=== PATIENT | female | born 1980 | race Caucasian/White ===

== ENCOUNTER → 2016-10-28 | Outpatient (CLI) | payer BC, OTHER ==
[~2016-10-28] MED LIST: /QUET10TA; CLON0.5T PO; KLON1TAB; LEVO200T4 PO; LEVOXYL25 MCG PO; MIRT30TA2 PO; PROZ40CA
--- NOTE | 2016-10-28 14:30 | REP ---
RIGHT KNEE FIVE VIEWS: HISTORY: Fall. There is no acute fracture or dislocation. There is very minimal lateral subluxation of the patella. The knee joint space is normal in appearance. IMPRESSION: There is very minimal lateral subluxation of the patella. Signed by Edmundo Do MD 10/28/2016 02:31 P
== END ==
LOC: M WUC 13:56
PROVIDERS: ATTEND Physician Assistant
DX: M25.561 Pain in right knee (principal)

== ENCOUNTER 2017-09-03 16:10 | Emergency (ER) | payer BC, OTHER ==
[2017-09-03] MEDS: NS 1,000 ML IV (16:30)
[2017-09-03] MEDS ORDERED: ONDANSETRON 4MG/2ML VIAL (J2405) As Ordered (16:40)
[2017-09-03 16:51] LABS: HEMATOCRIT 42.6 % (36.0-47.0); HEMOGLOBIN 14.7 g/dl (12.0-15.5); MEAN CORPUSCULAR HEMOGLOBIN 30.7 pg (27.0-33.0); MEAN CORPUSCULAR HGB CONC 34.5 g/dl (32.0-36.5); MEAN CORPUSCULAR VOLUME 88.9 fl (80.0-96.0); PLATELET COUNT, AUTOMATED 384 10^3/uL (150-450); RED BLOOD COUNT 4.79 10^6/uL (4.00-5.40); RED CELL DISTRIBUTION WIDTH 12.5 % (11.5-14.5)
[2017-09-03 16:55] LABS: ADD MANUAL DIFFER YES; DIFF SLIDE NUMBER 123; POSITIVE DIFF POS FLAG; WHITE BLOOD COUNT 15.3 10^3/uL (4.0-10.0)
[2017-09-03] MEDS: ONDANSETRON 4MG/2ML VIAL (J2405) IV (16:56)
[2017-09-03] MEDS: MORPHINE 4 MG/ML 1ML VIAL/SYRINGE (J2270) IV ×2 (16:56→17:32)
[2017-09-03 17:07] LABS: CONTROL LINE HCG INT CTR LINE PRESENT; HCG, SERUM QUALITATIVE NEGATIVE (NEGATIVE)
[2017-09-03 17:16] LABS: ALBUMIN 3.9 GM/DL (3.2-5.2); ALKALINE PHOSPHATASE 77 U/L (45-117); ALT/SGPT 14 U/L (12-78); ANION GAP 11 MEQ/L (8-16); AST/SGOT 29 U/L (7-37); BILIRUBIN,DIRECT < 0.1 MG/DL (0.0-0.2); BILIRUBIN,TOTAL 0.3 MG/DL (0.2-1.0); BLOOD UREA NITROGEN 9 MG/DL (7-18); CALCIUM LEVEL 8.7 MG/DL (8.5-10.1); CARBON DIOXIDE LEVEL 23 MEQ/L (21-32); CHLORIDE LEVEL 104 MEQ/L (98-107); CREATININE FOR GFR 0.89 MG/DL (0.55-1.30); GLOMERULAR FILTRATION RATE > 60.0 (>60); GLUCOSE, FASTING 153 MG/DL (70-100); LIPASE 161 U/L (73-393); SODIUM LEVEL 138 MEQ/L (136-145); TOTAL PROTEIN 7.8 GM/DL (6.4-8.2)
[2017-09-03 17:35] LABS: ATYPICAL LYMPH 24 % (0-5); EOSINOPHILS 5 % (0-5); LYMPHOCYTES 15 % (16-52); MONOCYTES 1 % (0-8); NEUTROPHILS 55 % (35-75)
[2017-09-03 17:36] LABS: OVALOCYTES 1+; PLATELET ESTIMATE NORMAL (NORMAL); POIKILOCYTOSIS 1+; TOXIC VACUOLATION 1+
[2017-09-03 18:03] LABS: KETONE, URINE AUTO RFX TRACE mg/dL (NEGATIVE); LEUKOCYTE ESTERASE UR AUTO RFX NEGATIVE (NEGATIVE); NITRITE, URINE AUTO RFX NEGATIVE (NEGATIVE); RBC, URINE AUTO RFX TNTC /HPF (0-3); SPECIFIC GRAVITY UR AUTO RFX 1.018 (1.002-1.035); SQUAM EPITHELIAL CELL UR AURFX 4 /HPF (0-6); WBC, URINE AUTO RFX 1 /HPF (0-3)
== END 2017-09-03 18:54 | disposition home or self-care (01) ==
LOC: M ED 16:10
DX: N20.0 Calculus of kidney (principal); Z87.442 Personal history of urinary calculi; Z85.850 Personal history of malignant neoplasm of thyroid; Z96.0 Presence of urogenital implants; Z88.1 Allergy status to other antibiotic agents; Z88.8 Allergy status to other drugs, medicaments and biological substances; Z88.4 Allergy status to anesthetic agent; Z79.899 Other long term (current) drug therapy
CPT/HCPCS: J2270

== ENCOUNTER → 2017-09-06 | Outpatient (REF) | payer OTHER | LOC: M SFHCCLAY 14:24 | DX: N20.1 Calculus of ureter (principal) | CPT/HCPCS: 87086 ==

== ENCOUNTER 2017-09-23 15:56 | Emergency (ER) | payer BC, OTHER ==
[2017-09-23] MEDS: ONDANSETRON 4MG/2ML VIAL (J2405) IV (14:56)
[2017-09-23] MEDS: NS 1,000 ML IV (14:56)
[2017-09-23] MEDS: MORPHINE 4 MG/ML 1ML VIAL/SYRINGE (J2270) IV ×2 (14:57→16:35)
[2017-09-23 15:13] LABS: BASO # 0.1 10^3/uL (0.0-0.2); BASO % 0.5 % (0.0-1.0); EOS # 0.2 10^3/uL (0.0-0.50); EOS % 1.5 % (0.0-3.0); HEMATOCRIT 44.2 % (36.0-47.0); HEMOGLOBIN 14.9 g/dl (12.0-15.5); IMMATURE GRANULOCYTE % 0.3 % (0-3.0); LYMPH # 3.6 10^3/uL (1.5-4.5); LYMPH % 33.5 % (24.0-44.0); MEAN CORPUSCULAR HEMOGLOBIN 30.5 pg (27.0-33.0); MEAN CORPUSCULAR HGB CONC 33.7 g/dl (32.0-36.5); MEAN CORPUSCULAR VOLUME 90.4 fl (80.0-96.0); MONO # 0.8 10^3/uL (0.0-0.8); MONO % 7.6 % (0.0-5.0); NEUTROPHILS # 6.1 10^3/uL (1.8-7.7); NEUTROPHILS % 56.6 % (36.0-66.0); PLATELET COUNT, AUTOMATED 367 10^3/uL (150-450); RED BLOOD COUNT 4.89 10^6/uL (4.00-5.40); RED CELL DISTRIBUTION WIDTH 12.6 % (11.5-14.5); WHITE BLOOD COUNT 10.7 10^3/uL (4.0-10.0)
[2017-09-23 15:27] LABS: ALBUMIN 4.1 GM/DL (3.2-5.2); ALBUMIN/GLOBULIN RATIO 1.14 (1.00-1.93); ALKALINE PHOSPHATASE 72 U/L (45-117); ALT/SGPT 19 U/L (12-78); AMYLASE 25 U/L (25-115); ANION GAP 10 MEQ/L (8-16); AST/SGOT 14 U/L (7-37); BILIRUBIN,DIRECT < 0.1 MG/DL (0.0-0.2); BILIRUBIN,TOTAL 0.2 MG/DL (0.2-1.0); BLOOD UREA NITROGEN 11 MG/DL (7-18); C REACTIVE PROTEIN QUANTITATIV 1.14 MG/DL (0.00-0.30); CALCIUM LEVEL 8.9 MG/DL (8.5-10.1); CARBON DIOXIDE LEVEL 29 MEQ/L (21-32); CHLORIDE LEVEL 104 MEQ/L (98-107); CREATININE FOR GFR 0.78 MG/DL (0.55-1.30); GAMMA GLUTAMYLTRANSPEPTIDASE 66 U/L (5-55); GLOMERULAR FILTRATION RATE > 60.0 (>60); GLUCOSE, FASTING 135 MG/DL (70-100); LIPASE 214 U/L (73-393); POTASSIUM SERUM 3.9 MEQ/L (3.5-5.1); SODIUM LEVEL 143 MEQ/L (136-145); TOTAL PROTEIN 7.7 GM/DL (6.4-8.2)
[2017-09-23] MEDS: PANTOPRAZOLE 40MG INJ (PROTONIX) (C9113) IV (18:17)
[2017-09-23] MEDS: GI COCKTAIL 50ML BTL(HYOSCYAMINE/MAALOX/LIDOCAINE VISCOUS)(1:3:1) PO (18:17)
[2017-09-23 19:47] LABS: KETONE, URINE AUTO RFX TRACE mg/dL (NEGATIVE); LEUKOCYTE ESTERASE UR AUTO RFX NEGATIVE (NEGATIVE); MUCUS, URINE RFX SMALL (NEGATIVE); NITRITE, URINE AUTO RFX NEGATIVE (NEGATIVE); RBC, URINE AUTO RFX 134 /HPF (0-3); SPECIFIC GRAVITY UR AUTO RFX 1.019 (1.002-1.035); SQUAM EPITHELIAL CELL UR AURFX 7 /HPF (0-6); WBC, URINE AUTO RFX 3 /HPF (0-3)
[2017-09-23] MEDS: NORCO 5/325MG TABLET (BULK FOR ED) PO (20:47)
[2017-09-23] MEDS: ONDANSETRON 4 MG ORAL DISINTEGRATING TAB (Q0162 PER 1MG) PO (20:47)
== END 2017-09-23 20:53 | disposition home or self-care (01) ==
LOC: M ED 15:56
DX: N23 Unspecified renal colic (principal); Z85.850 Personal history of malignant neoplasm of thyroid; Z96.0 Presence of urogenital implants; Z90.89 Acquired absence of other organs; Z87.891 Personal history of nicotine dependence; Z79.899 Other long term (current) drug therapy; Z88.8 Allergy status to other drugs, medicaments and biological substances; Z88.1 Allergy status to other antibiotic agents
CPT/HCPCS: C9113

== ENCOUNTER → 2017-10-03 | Outpatient (REF) | payer BC, OTHER ==
[2017-10-03 11:33] LABS: AMORPHOUS SEDIMENT SMALL (NEGATIVE); APPEARANCE, URINE CLOUDY (CLEAR); BACTERIA, URINE AUTO 1+ (NEGATIVE); BILIRUBIN, URINE AUTO NEGATIVE (NEGATIVE); BLOOD, URINE BLOOD 3+ (NEGATIVE); COLOR, URINE YELLOW (YELLOW); GLUCOSE, URINE (UA) AUTO NEGATIVE (NEGATIVE); KETONE, URINE AUTO NEGATIVE (NEGATIVE); LEUKOCYTE ESTERASE, URINE AUTO NEGATIVE (NEGATIVE); MUCUS, URINE SMALL (NEGATIVE); NITRITE, URINE AUTO NEGATIVE (NEGATIVE); PROTEIN, URINE AUTO NEGATIVE (NEGATIVE); RBC, URINE AUTO TNTC /HPF (0-3); SPECIFIC GRAVITY URINE AUTO 1.019 (1.002-1.035); SQUAMOUS EPITHELIAL CELL UR AU 8 /HPF (0-6); UROBILINOGEN, URINE AUTO 0.2 mg/dL (0.0-2.0); WBC, URINE AUTO 4 /HPF (0-3)
== END ==
LOC: M SMT 11:03
DX: R31.29 Other microscopic hematuria (principal)

== ENCOUNTER → 2017-10-11 | Outpatient (CLI) | payer BC, OTHER ==
[~2017-10-11] MED LIST changes: -/QUET10TA; -CLON0.5T PO; +ISOVUE-370 76% 100ML VIAL (Q9967) As Ordered; -KLON1TAB; -LEVO200T4 PO; -LEVOXYL25 MCG PO; -MIRT30TA2 PO; -PROZ40CA
== END ==
LOC: M RAD 08:50
DX: R31.29 Other microscopic hematuria (principal); N20.0 Calculus of kidney; N28.1 Cyst of kidney, acquired; N94.89 Other specified conditions associated with female genital organs and menstrual cycle
CPT/HCPCS: Q9967

== ENCOUNTER → 2017-10-11 | Outpatient (REF) | payer BC, OTHER ==
[2017-10-11 13:48] LABS: AMORPHOUS SEDIMENT SMALL (NEGATIVE); APPEARANCE, URINE CLOUDY (CLEAR); BACTERIA, URINE AUTO NEGATIVE (NEGATIVE); BILIRUBIN, URINE AUTO NEGATIVE (NEGATIVE); BLOOD, URINE BLOOD NEGATIVE (NEGATIVE); COLOR, URINE YELLOW (YELLOW); GLUCOSE, URINE (UA) AUTO NEGATIVE (NEGATIVE); KETONE, URINE AUTO NEGATIVE (NEGATIVE); LEUKOCYTE ESTERASE, URINE AUTO NEGATIVE (NEGATIVE); MUCUS, URINE SMALL (NEGATIVE); NITRITE, URINE AUTO NEGATIVE (NEGATIVE); PROTEIN, URINE AUTO NEGATIVE (NEGATIVE); RBC, URINE AUTO 3 /HPF (0-3); SPECIFIC GRAVITY URINE AUTO 1.025 (1.002-1.035); SQUAMOUS EPITHELIAL CELL UR AU 0 /HPF (0-6); UROBILINOGEN, URINE AUTO 0.2 mg/dL (0.0-2.0); WBC, URINE AUTO 3 /HPF (0-3)
== END ==
LOC: M SMT 13:13
DX: R31.29 Other microscopic hematuria (principal)
CPT/HCPCS: 81001

== ENCOUNTER 2017-11-01 20:16 | Emergency (ER) | payer BC, OTHER | END 2017-11-01 21:38 | disposition left against medical advice (07) | LOC: M ED 20:16 | DX: R20.2 Paresthesia of skin (principal); Z53.21 Procedure and treatment not carried out due to patient leaving prior to being seen by health care provider ==

== ENCOUNTER 2017-11-17 16:49 | Emergency (ER) | payer BC, OTHER ==
[2017-11-17] MEDS: KETOROLAC 30 MG/ML VIAL (J1885) IV (18:02)
[2017-11-17] MEDS: MORPHINE 4 MG/ML 1ML VIAL/SYRINGE (J2270) IV (18:03)
[2017-11-17] MEDS: diazePAM 5 MG TAB PO (18:03)
[2017-11-17 18:24] LABS: BASO # 0.1 10^3/uL (0.0-0.2); BASO % 0.4 % (0.0-1.0); EOS # 0.2 10^3/uL (0.0-0.50); EOS % 1.2 % (0.0-3.0); HEMATOCRIT 42.7 % (36.0-47.0); HEMOGLOBIN 14.3 g/dl (12.0-15.5); IMMATURE GRANULOCYTE % 0.4 % (0-3.0); LYMPH # 4.5 10^3/uL (1.5-4.5); LYMPH % 30.7 % (24.0-44.0); MEAN CORPUSCULAR HEMOGLOBIN 31.1 pg (27.0-33.0); MEAN CORPUSCULAR HGB CONC 33.5 g/dl (32.0-36.5); MEAN CORPUSCULAR VOLUME 92.8 fl (80.0-96.0); MONO % 6.9 % (0.0-5.0); NEUTROPHILS # 8.7 10^3/uL (1.8-7.7); NEUTROPHILS % 60.4 % (36.0-66.0); PLATELET COUNT, AUTOMATED 353 10^3/uL (150-450); RED CELL DISTRIBUTION WIDTH 13.3 % (11.5-14.5); WHITE BLOOD COUNT 14.5 10^3/uL (4.0-10.0)
[2017-11-17 18:49] LABS: CONTROL LINE HCG INT CTR LINE PRESENT; HCG, SERUM QUALITATIVE NEGATIVE (NEGATIVE)
[2017-11-17 18:53] LABS: ANION GAP 10 MEQ/L (8-16); BLOOD UREA NITROGEN 24 MG/DL (7-18); CALCIUM LEVEL 10.1 MG/DL (8.5-10.1); CARBON DIOXIDE LEVEL 26 MEQ/L (21-32); CHLORIDE LEVEL 103 MEQ/L (98-107); CREATININE FOR GFR 0.82 MG/DL (0.55-1.30); GLOMERULAR FILTRATION RATE > 60.0 (>60); GLUCOSE, FASTING 168 MG/DL (70-100); POTASSIUM SERUM 4.3 MEQ/L (3.5-5.1); SODIUM LEVEL 139 MEQ/L (136-145)
[2017-11-17] MEDS: NORCO 5/325MG TABLET (BULK FOR ED) PO (19:25)
== END 2017-11-17 19:37 | disposition home or self-care (01) ==
LOC: M ED 16:49
DX: S33.5XXA Sprain of ligaments of lumbar spine, initial encounter (principal); F41.9 Anxiety disorder, unspecified
CPT/HCPCS: J2270

== ENCOUNTER → 2018-04-22 | Outpatient (CLI) | payer BC, OTHER ==
[~2018-04-22] MED LIST changes: +/QUET10TA; +CLON0.5T8 PO; +CLON1TAB8; -ISOVUE-370 76% 100ML VIAL (Q9967) As Ordered; +JUNETAB2; +KLON1TAB; +LEVO175T2 PO; +LEVO200T4 PO; +LEVOXYL25 MCG PO; +LYRI150C; +MIRT-16 PO; +MIRT30TA3; +NORCOTAB PO; +PRED50TA PO; +PROZ40CA; +TRAM50TA2; +VALI5TAB PO; +[UNRECOGNIZED DRUG - CODE] XX
--- NOTE | 2018-04-22 17:29 | REP ---
Clinical: Trauma/fall with left ankle pain . Technique: AP, lateral, bilateral oblique views. Findings: No acute fracture or dislocation. Skeletal structures and joint spaces are intact and normal. Ankle mortise appears stable. No subcutaneous emphysema or radiodense foreign body. Impression: Normal left ankle radiograph series. Acute fracture or dislocation. Electronically Signed by Alexandr Francis MD 04/22/2018 05:21 P
--- NOTE | 2018-04-22 17:30 | REP ---
Clinical: Trauma. Technique: AP, lateral, bilateral oblique views left foot . Findings: The osseous structures and joint spaces are intact and normal. There is no evidence for acute fracture or dislocation. Surrounding soft tissues are unremarkable. No subcutaneous emphysema or radiodense foreign body. Impression: Normal left foot series. No acute fracture or dislocation. Electronically Signed by Alexandr Francis MD 04/22/2018 05:22 P
== END ==
LOC: M LRY 16:56
PROVIDERS: ATTEND Physician Assistant
DX: S99.912A Unspecified injury of left ankle, initial encounter (principal); S99.922A Unspecified injury of left foot, initial encounter

== ENCOUNTER 2018-04-23 14:41 | Emergency (ER) | payer BC, OTHER ==
[~2018-04-23] VITALS: Ht 157.5 cm; Wt 93.2 kg
[~2018-04-23 14:41] MED LIST changes: -CLON1TAB8; -TRAM50TA2; -[UNRECOGNIZED DRUG - CODE] XX
[2018-04-23] MEDS ORDERED: TRAM50TA2 (14:50)
[2018-04-23] MEDS ORDERED: CLON1TAB8 (14:50)
[2018-04-23] MEDS ORDERED: [UNRECOGNIZED DRUG - CODE] XX ×2 (17:40→17:45)
[2018-04-23 17:51] VITALS: BP 125/73
== END 2018-04-23 18:04 | disposition home or self-care (01) ==
LOC: M ED 14:41
DX: S93.602A Unspecified sprain of left foot, initial encounter (principal); W00.9XXA Unspecified fall due to ice and snow, initial encounter; Y92.9 Unspecified place or not applicable; Y93.9 Activity, unspecified; Y99.9 Unspecified external cause status; Z79.899 Other long term (current) drug therapy; Z88.8 Allergy status to other drugs, medicaments and biological substances

== ENCOUNTER → 2018-08-29 | Outpatient (REF) | payer OTHER ==
[~2018-08-29] MED LIST changes: -/QUET10TA; +CLON1TAB8; +HYDR-3715 PO; -MIRT-16 PO; +MIRT1TAB16 PO; -NORCOTAB PO; +SERO1TAB; +TRAM50TA2; +[UNRECOGNIZED DRUG - CODE] XX
[2018-08-29 16:23] LABS: C REACTIVE PROTEIN QUANTITATIV 3.24 MG/DL (0.00-0.30); RHEUMATOID FACTOR QUANT < 10.0 IU/ML (<15.0)
[2018-09-05 00:07] LABS: ANTINUCLEAR ANTIBODIES DIRECT Negative (Negative); HLA-B27 Negative (.)
== END ==
LOC: M LABDRAW1 13:57
PROVIDERS: ATTEND Physician Assistant
DX: M47.816 Spondylosis without myelopathy or radiculopathy, lumbar region (principal)

== ENCOUNTER → 2018-09-12 | Outpatient (REF) | payer OTHER ==
[2018-09-15 01:35] LABS: Lyme Disease IgG/IgM Antibodie <0.91 ISR (0.00-0.90); Lyme Disease IgM Ab Quantitati <0.80 index (0.00-0.79)
== END ==
LOC: M LABDRAW1 11:22
PROVIDERS: ATTEND Physician Assistant
DX: M47.816 Spondylosis without myelopathy or radiculopathy, lumbar region (principal)

== ENCOUNTER → 2018-09-28 | Outpatient (CLI) | payer BC, OTHER ==
--- NOTE | 2018-09-28 14:29 | REP ---
Clinical: Right ankle pain. Technique: AP, lateral, bilateral oblique views of the right ankle. Findings: No acute fracture or dislocation. Skeletal structures, joint spaces, and surrounding soft tissues appear normal. Impression: Normal right ankle radiographs. No acute fracture or dislocation. Electronically Signed by Alexandr Francis MD 09/28/2018 02:21 P
--- NOTE | 2018-09-28 14:30 | REP ---
Clinical: Pain. Technique: AP and lateral views of the right tibia / fibula. Findings: No acute fracture or dislocation. Skeletal structures, joint spaces, and surrounding soft tissues appear normal. Impression: Normal right tibia / fibula radiographs. Electronically Signed by Alexandr Francis MD 09/28/2018 02:22 P
--- NOTE | 2018-09-28 14:30 | REP ---
Clinical: Right foot pain Technique: AP, lateral, bilateral oblique views right foot . Findings: The osseous structures and joint spaces are intact and normal. There is no evidence for acute fracture or dislocation. Surrounding soft tissues are unremarkable. No subcutaneous emphysema or radiodense foreign body. Impression: Normal right foot series . No acute fracture or dislocation. Electronically Signed by Alexandr Francis MD 09/28/2018 02:21 P
== END ==
LOC: M WUC 13:25
PROVIDERS: ATTEND Physician Assistant
DX: M25.571 Pain in right ankle and joints of right foot (principal)

== ENCOUNTER → 2018-10-04 | Outpatient (REF) | payer BC, OTHER ==
[2018-10-04 14:34] LABS: BASO # 0.1 10^3/uL (0.0-0.2); BASO % 0.8 % (0.0-1.0); EOS # 0.2 10^3/uL (0.0-0.50); EOS % 2.4 % (0.0-3.0); HEMATOCRIT 45.1 % (36.0-47.0); LYMPH # 2.6 10^3/uL (1.5-4.5); LYMPH % 32.7 % (24.0-44.0); MEAN CORPUSCULAR HEMOGLOBIN 31.6 pg (27.0-33.0); MEAN CORPUSCULAR HGB CONC 33.3 g/dl (32.0-36.5); MEAN CORPUSCULAR VOLUME 95.1 fl (80.0-96.0); MONO # 0.6 10^3/uL (0.0-0.8); MONO % 7.3 % (0.0-5.0); NEUTROPHILS # 4.4 10^3/uL (1.8-7.7); NEUTROPHILS % 56.4 % (36.0-66.0); PLATELET COUNT, AUTOMATED 333 10^3/uL (150-450); RED BLOOD COUNT 4.74 10^6/uL (4.00-5.40); WHITE BLOOD COUNT 7.8 10^3/uL (4.0-10.0)
[2018-10-04 15:13] LABS: ERYTHROCYTE SEDIMENTATION RATE 11 mm/hr (0-20)
[2018-10-04 15:15] LABS: ALBUMIN 3.9 GM/DL (3.2-5.2); ALT/SGPT 19 U/L (12-78); BILIRUBIN,TOTAL 0.2 MG/DL (0.2-1.0); BLOOD UREA NITROGEN 10 MG/DL (7-18); CALCIUM LEVEL 8.7 MG/DL (8.5-10.1); CARBON DIOXIDE LEVEL 28 MEQ/L (21-32); CHLORIDE LEVEL 100 MEQ/L (98-107); CREATININE FOR GFR 0.97 MG/DL (0.55-1.30); FOLATE 13.1 NG/ML; GLOMERULAR FILTRATION RATE > 60.0 (>60); GLUCOSE, FASTING 257 MG/DL (70-100); POTASSIUM SERUM 4.1 MEQ/L (3.5-5.1); RHEUMATOID FACTOR QUANT < 10.0 IU/ML (<15.0); SODIUM LEVEL 136 MEQ/L (136-145); TOTAL PROTEIN 7.5 GM/DL (6.4-8.2); VITAMIN B12 LEVEL 370 PG/ML
[2018-10-04 15:30] LABS: HEMOGLOBIN A1c 8.6 %
[2018-10-09 10:06] LABS: DRVV SCREEN 44.5 SEC
[2018-10-09 10:07] LABS: PTT LUPUS TYPE ANTICOAG SCREEN 1.1 (0-1.2)
[2018-10-10 14:07] LABS: ANCA-ATYPICAL <1:20 titer (Neg:<1:20); ANTI DS-DNA AB <1:10 titer (.); ANTINUCLEAR ANTIBODIES DIRECT Negative (Negative); CERULOPLASMIN 30.6 mg/dL (19.0-39.0); COPPER PLASMA 133 ug/dL (72-166); CYTOPLASMIC NEUTROP AB ANCA-C <1:20 titer (Neg:<1:20); LEAD BLOOD ADULT <1 ug/dL (0-4); Lyme Disease IgG/IgM Antibodie <0.91 ISR (0.00-0.90); Lyme Disease IgM Ab Quantitati <0.80 index (0.00-0.79); MERCURY LEVEL 1.9 ug/L (0.0-14.9); PERINUCLEAR AB ANCA-P <1:20 titer (Neg:<1:20); SJOGREN'S ANTI SS-A <0.2 AI (0.0-0.9); SJOGREN'S ANTI SS-B <0.2 AI (0.0-0.9); VITAMIN B1 LEVEL WHOLE BLOOD 117.1 nmol/L (66.5-200.0); VITAMIN B6,PYRIDOXAL PHOSPHATE 2.8 ug/L (2.0-32.8); VITAMIN E(GAMMA TOCOPHEROL) 2.9 mg/L (0.7-4.9)
== END ==
LOC: M LABNEURO 10:36
PROVIDERS: ATTEND Psychiatry & Neurology Neurology
DX: G90.09 Other idiopathic peripheral autonomic neuropathy (principal)

== ENCOUNTER 2018-10-25 17:47 | Emergency (ER) | payer BC, OTHER ==
[~2018-10-25] VITALS: Ht 157.5 cm; Wt 99.5 kg
[~2018-10-25 17:47] MED LIST changes: +CLON0.5T2 PO; -CLON0.5T8 PO
[2018-10-25] MEDS ORDERED: MIRT1TAB16 PO (17:57)
[2018-10-25] MEDS ORDERED: TIZA4TAB4 (17:58)
[2018-10-25] MEDS ORDERED: MORPHINE 4 MG/ML 1ML VIAL/SYRINGE (J2270) IV ONE (19:00)
[2018-10-25] MEDS: MORPHINE 4 MG/ML 1ML VIAL/SYRINGE (J2270) IV PRN ×2 (20:12→21:43)
[2018-10-25 21:44] VITALS: BP 171/97
== END 2018-10-25 21:47 | disposition short-term general hospital (02) ==
LOC: M ED 17:47
DX: D49.89 Neoplasm of unspecified behavior of other specified sites (principal); R20.2 Paresthesia of skin; G89.29 Other chronic pain; M54.9 Dorsalgia, unspecified; Z79.899 Other long term (current) drug therapy; Z88.8 Allergy status to other drugs, medicaments and biological substances; Z87.891 Personal history of nicotine dependence
CPT/HCPCS: 96374; 96376; 99285; J2270

== ENCOUNTER 2018-12-22 17:25 | Emergency (ER) | payer BC, OTHER ==
[~2018-12-22] VITALS: Ht 160 cm; Wt 97.7 kg
[~2018-12-22 17:25] MED LIST changes: -CLON0.5T2 PO; +CLON0.5T8 PO; +TIZA4TAB4
[2018-12-22] MEDS ORDERED: ADENOSINE 6MG/2ML INJECTION (J0153) As Ordered ONE (17:36)
[2018-12-22] MEDS ORDERED: ADENOSINE 6MG/2ML INJECTION (J0153) IV STA ×2 (17:43)
[2018-12-22] MEDS ORDERED: NS 1,000 ML IV ONE (17:45)
[2018-12-22] MEDS ORDERED: LORazepam 2 MG/ML VIAL (J2060) IV STA (17:50)
[2018-12-22 17:58] LABS: HEMOGLOBIN 15.8 g/dl (12.0-15.5); MEAN CORPUSCULAR HGB CONC 33.6 g/dl (32.0-36.5); MEAN CORPUSCULAR VOLUME 92.2 fl (80.0-96.0); PLATELET COUNT, AUTOMATED 514 10^3/uL (150-450)
[2018-12-22 17:59] LABS: WHITE BLOOD COUNT 18.6 10^3/uL (4.0-10.0)
[2018-12-22 18:08] LABS: INR 1.06; PROTHROMBIN TIME 13.5 SECONDS (11.8-14.0)
[2018-12-22 18:29] LABS: ALT/SGPT 24 U/L (12-78); BILIRUBIN,DIRECT < 0.1 MG/DL (0.0-0.2); BILIRUBIN,TOTAL 0.2 MG/DL (0.2-1.0); BLOOD UREA NITROGEN 8 MG/DL (7-18); CALCIUM LEVEL 9.8 MG/DL (8.5-10.1); CARBON DIOXIDE LEVEL 22 MEQ/L (21-32); CHLORIDE LEVEL 99 MEQ/L (98-107); CK-MB VALUE MASS < 1.0 NG/ML (<3.6); CPK CREATINE PHOSPHOKINASE 104 U/L (26-192); CREATININE FOR GFR 1.08 MG/DL (0.55-1.30); FREE T4 0.62 NG/DL (0.76-1.46); GLOMERULAR FILTRATION RATE > 60.0 (>60); GLUCOSE, FASTING 297 MG/DL (70-100); LIPASE 138 U/L (73-393); MB/CK RELATIVE INDEX 0.96 (< OR =4); SODIUM LEVEL 136 MEQ/L (136-145); TOTAL PROTEIN 7.9 GM/DL (6.4-8.2); TROPONIN I < 0.02 NG/ML (< 0.10)
[2018-12-22 18:47] LABS: BASOPHILS 1 % (0-1); EOSINOPHILS 2 % (0-3); LYMPHOCYTES 42 % (16-44); MONOCYTES 5 % (0-5); NEUTROPHILS 50 % (28-66); PLATELET ESTIMATE INCREASED (NORMAL)
[2018-12-22] MEDS ORDERED: METOPROLOL 5 MG/5 ML VIAL IV STA (19:06)
[2018-12-22] MEDS ORDERED: METOPROLOL TART 25 MG TABLET PO ONE (19:15)
[2018-12-22 19:16] VITALS: BP 145/75
[2018-12-22 19:26] LABS: HCG, SERUM QUALITATIVE NEGATIVE (NEGATIVE)
--- NOTE | 2018-12-22 19:38 | ECGEPIP ---
[facility] - ED Test Date: 2018-12-22 Pat Name: SINDI PHAN Department: Room: - Gender: Female Habilitative Interventionist: OLIVIA : [id number] Requested By: Adeline Bar Order Number: [id number] Reading MD: Adeline Bar Measurements Intervals [place] Rate: 122 P: 64 [place]: 134 QRS: 50 QRSD: 87 T: 54 QT: 298 QTc: 426 Interpretive Statements SINUS TACHYCARDIA NONSPECIFIC ST & T-WAVE ABNORMALITY ABNORMAL RHYTHM ECG DELAYED R WAVE PROGRESSION NO PRIOR ECG FOR COMPARISON Electronically Signed on 12-22-2018 19:37:36 EDT by Adeline Bar
[2018-12-22 20:45] VITALS: BP 151/86
--- NOTE | 2018-12-23 09:08 | REP ---
AP PORTABLE CHEST: 12/22/2018. Clinical history: Chest pain. Findings: No prior pertinent study. There is some elevation of the right diaphragm which is present on the CT abdomen 10/11/17. No pleural effusion, acute infiltrate, atelectasis or mass. Heart is not enlarged. Aorta and airway are intact. There is no widening of the mediastinum. Visualized bones are unremarkable. No free air under the diaphragm. Impression: 1. Elevated right diaphragm, but no infiltrate, effusion, cardiomegaly or edema. 2. The heart, mediastinal and hilar contours are normal. No widening of the mediastinum. 3. Airway intact and the bones without definite acute finding. Electronically Signed by Eric Giles MD 12/23/2018 01:07 P
== END 2018-12-22 20:52 | disposition home or self-care (01) ==
LOC: M ED 17:25
DX: I47.1 Supraventricular tachycardia (principal); R73.9 Hyperglycemia, unspecified; F41.9 Anxiety disorder, unspecified; E07.9 Disorder of thyroid, unspecified; Z79.899 Other long term (current) drug therapy; Z79.890 Hormone replacement therapy; Z88.8 Allergy status to other drugs, medicaments and biological substances
CPT/HCPCS: 71045; 80048; 80076; 82550; 82553; 83690; 83735; 84439; 84443; 84484; 84703; 85025; 85610; 93005; 93041; 94760; 96361; 96374; 96375; 99285; J0153; J2060

== ENCOUNTER → 2020-02-04 | Outpatient (REF) | payer OTHER ==
[~2020-02-04] MED LIST changes: +CLON0.5T2 PO; -CLON0.5T8 PO
[2020-02-04 13:37] LABS: APPEARANCE, URINE CLEAR (CLEAR); BACTERIA, URINE AUTO NEGATIVE (NEGATIVE); BILIRUBIN, URINE AUTO NEGATIVE (NEGATIVE); BLOOD, URINE BLOOD NEGATIVE (NEGATIVE); COLOR, URINE YELLOW (YELLOW); GLUCOSE, URINE (UA) AUTO 3+ mg/dL (NEGATIVE); KETONE, URINE AUTO 1+ mg/dL (NEGATIVE); LEUKOCYTE ESTERASE, URINE AUTO NEGATIVE (NEGATIVE); NITRITE, URINE AUTO NEGATIVE (NEGATIVE); PROTEIN, URINE AUTO NEGATIVE (NEGATIVE); RBC, URINE AUTO 1 /HPF (0-3); SPECIFIC GRAVITY URINE AUTO 1.033 (1.002-1.035); SQUAMOUS EPITHELIAL CELL UR AU 5 /HPF (0-6); UROBILINOGEN, URINE AUTO 0.2 mg/dL (0.0-2.0); WBC, URINE AUTO 2 /HPF (0-3)
== END ==
LOC: M SMT 13:00
PROVIDERS: ATTEND Nurse Practitioner Women's Health
DX: N20.0 Calculus of kidney (principal); R31.0 Gross hematuria

== ENCOUNTER → 2020-03-06 | Outpatient (CLI) | payer BC | LOC: M WUC 14:40 | PROVIDERS: ATTEND Nurse Practitioner | DX: C73 Malignant neoplasm of thyroid gland (principal) ==

== ENCOUNTER → 2020-07-06 | Outpatient (CLI) | payer BC, OTHER | LOC: M WUC 15:56 | PROVIDERS: ATTEND Surgery | DX: Z53.20 Procedure and treatment not carried out because of patient's decision for unspecified reasons (principal) ==

== ENCOUNTER → 2020-07-07 | Outpatient (REF) | payer BC, OTHER | LOC: M LAB REF 19:53 | PROVIDERS: ATTEND Surgery | DX: C73 Malignant neoplasm of thyroid gland (principal) ==

== ENCOUNTER → 2020-07-10 | Outpatient (CLI) | payer BC, OTHER ==
[~2020-07-10] MED LIST changes: +ISOVUE-300 61% 50ML VIAL As Ordered ONE; +LIDOCAINE 1% MDV 20ML VIAL As Ordered ONE; +TRIAMCINOLONE ACETONIDE SUSP 40 MG/ML VIAL (J3301) As Ordered ONE
--- NOTE | 2020-07-10 16:53 | REP ---
INDICATION: OA OF RT HIP. COMPARISON: None. TECHNIQUE: The procedure was performed under the direct supervision of Dr. Charles. The benefits and risks including but not limited to pain infection and bleeding and anaphylaxis were explained to the patient and informed consent was obtained. The right femoral neck was localized using fluoroscopic guidance. The skin was prepped and draped in a sterile fashion. 1% lidocaine was used as a local anesthetic. Using fluoroscopic guidance a 22-gauge spinal needle was inserted and advanced to the femoral neck. 0.5 ml of Isovue-300 was injected to verify placement. 6 ml of a solution containing 5 ml of 1% Xylocaine and 1 ml of Kenalog 40 mg was injected. The needle was then removed. The patient tolerated the procedure well and there were no immediate complications. Less than 6 seconds of fluoro time was utilized for this procedure. FINDINGS: None IMPRESSION: Fluoro guidance for right hip injection. <Electronically signed by Ludin Rogers > 07/10/20 [id number] <Electronically signed by Edward Charles > 07/10/20 [id number]
== END ==
LOC: M RADPRO 13:11
PROVIDERS: ATTEND Physician Assistant
DX: M16.11 Unilateral primary osteoarthritis, right hip (principal)
CPT/HCPCS: 20610; 77002; J3301; Q9967

== ENCOUNTER → 2020-10-19 | Outpatient (REF) | payer OTHER ==
[~2020-10-19] MED LIST changes: -ISOVUE-300 61% 50ML VIAL As Ordered ONE; -LIDOCAINE 1% MDV 20ML VIAL As Ordered ONE; -TRIAMCINOLONE ACETONIDE SUSP 40 MG/ML VIAL (J3301) As Ordered ONE
[2020-10-19 12:01] LABS: HEMATOCRIT 48.6 % (36.0-47.0); MEAN CORPUSCULAR HEMOGLOBIN 30.3 pg (27.0-33.0); MEAN CORPUSCULAR HGB CONC 32.9 g/dl (32.0-36.5); PLATELET COUNT, AUTOMATED 393 10^3/uL (150-450); RED BLOOD COUNT 5.28 10^6/uL (4.00-5.40); WHITE BLOOD COUNT 10.4 10^3/uL (4.0-10.0)
[2020-10-19 12:59] LABS: ALBUMIN 3.8 GM/DL (3.2-5.2); ALT/SGPT 55 U/L (12-78); BILIRUBIN,TOTAL 0.3 MG/DL (0.2-1.0); BLOOD UREA NITROGEN 6 MG/DL (7-18); CALCIUM LEVEL 8.7 MG/DL (8.5-10.1); CARBON DIOXIDE LEVEL 29 MEQ/L (21-32); CHLORIDE LEVEL 100 MEQ/L (98-107); CREATININE FOR GFR 0.73 MG/DL (0.55-1.30); GLOMERULAR FILTRATION RATE > 60.0 (>58); GLUCOSE, FASTING 310 MG/DL (70-100); POTASSIUM SERUM 4.4 MEQ/L (3.5-5.1); SODIUM LEVEL 136 MEQ/L (136-145); THYROGLOBULIN ANTIBODY < 15.0 U/ML (<60.0); TOTAL PROTEIN 7.3 GM/DL (6.4-8.2)
== END ==
LOC: M SFHCCLAY 07:34
PROVIDERS: ATTEND Family Medicine
DX: E89.0 Postprocedural hypothyroidism (principal); T81.40XA Infection following a procedure, unspecified, initial encounter

== ENCOUNTER 2020-12-31 13:43 | Emergency (ER) | payer BC, OTHER ==
[~2020-12-31] VITALS: Ht 157.5 cm; Wt 93.3 kg
[2020-12-31] MEDS ORDERED: ALPRAZolam 0.25 MG TAB PO ONE (17:30)
[2020-12-31] MEDS ORDERED: GI COCKTAIL 50ML BTL(HYOSCYAMINE/MAALOX/LIDOCAINE VISCOUS)(1:3:1) PO ONE (17:30)
--- NOTE | 2020-12-31 17:58 | REP ---
INDICATION: tastes blood, hemoptysis x 1 COMPARISON: 12/22/2018 TECHNIQUE: PA and lateral. FINDINGS: The mediastinum and cardiac silhouette are normal. The lung davidson are clear and without acute consolidation, effusion, or pneumothorax. The skeletal structures are intact and normal. Chronic elevation to the right hemidiaphragm. IMPRESSION: No acute cardiopulmonary process. <Electronically signed by Alexandr Francis > 12/31/20 [id number]
[2020-12-31 18:01] LABS: BASO # 0.1 10^3/uL (0.0-0.2); BASO % 0.8 % (0.0-1.0); EOS # 0.1 10^3/uL (0.0-0.5); EOS % 0.6 % (0.0-3.0); HEMATOCRIT 47.6 % (36.0-47.0); HEMOGLOBIN 16.1 g/dl (12.0-15.5); LYMPH # 3.2 10^3/uL (1.5-5.0); LYMPH % 20.5 % (24.0-44.0); MEAN CORPUSCULAR HEMOGLOBIN 30.2 pg (27.0-33.0); MEAN CORPUSCULAR HGB CONC 33.8 g/dl (32.0-36.5); MEAN CORPUSCULAR VOLUME 89.3 fl (80.0-96.0); MONO # 0.8 10^3/uL (0.0-0.8); MONO % 5.3 % (2.0-8.0); NEUTROPHILS % 71.8 % (36.0-66.0); PLATELET COUNT, AUTOMATED 371 10^3/uL (150-450); RED BLOOD COUNT 5.33 10^6/uL (4.00-5.40); WHITE BLOOD COUNT 15.4 10^3/uL (4.0-10.0)
[2020-12-31 18:11] LABS: INR 0.96; PARTIAL THROMBOPLASTIN TIME 29.6 SECONDS (25.9-37.0); PROTHROMBIN TIME 13.1 SECONDS (12.7-14.5)
[2020-12-31 18:14] LABS: D-DIMER QUANT 349.69 ng/ml (<500)
[2020-12-31 18:24] LABS: ALBUMIN 3.9 GM/DL (3.2-5.2); BILIRUBIN,DIRECT < 0.1 MG/DL (0.0-0.2); BILIRUBIN,TOTAL 0.3 MG/DL (0.2-1.0); TOTAL PROTEIN 7.8 GM/DL (6.4-8.2)
[2020-12-31 18:40] LABS: ALT/SGPT 23 U/L (12-78)
[2020-12-31 18:45] LABS: MONO REFLEX EBV COMP NEGATIVE (NEGATIVE)
[2020-12-31] MEDS ORDERED: DIFL150T PO (19:56)
[2020-12-31] MEDS ORDERED: FLUCONAZOLE 50MG TABLET PO ONE (20:00)
[2020-12-31 20:19] VITALS: BP 158/90
[2021-01-04 13:07] LABS: EBV VIRAL CAPSID AG IgG 49.7 U/mL (0.0-17.9); EBV VIRAL CAPSID AG IgM <36.0 U/mL (0.0-35.9)
== END 2020-12-31 20:16 | disposition home or self-care (01) ==
LOC: M ED 13:43
DX: R04.2 Hemoptysis (principal); B37.41 Candidal cystitis and urethritis; Z79.890 Hormone replacement therapy; Z79.899 Other long term (current) drug therapy; Z88.8 Allergy status to other drugs, medicaments and biological substances; Z88.1 Allergy status to other antibiotic agents; Z87.442 Personal history of urinary calculi; Z85.850 Personal history of malignant neoplasm of thyroid

== ENCOUNTER → 2021-01-28 | Outpatient (CLI) | payer BC, OTHER ==
[~2021-01-28] MED LIST changes: +DIFL150T PO
--- NOTE | 2021-01-28 11:22 | REP ---
INDICATION: R04.2, HEMOPTYSIS. COMPARISON: 12/31/2020 the latest prior TECHNIQUE: PA and lateral FINDINGS: The superior mediastinal structures are midline. The cardiac silhouette is unremarkable in size, shape, and position. The diaphragmatic surfaces of the lungs are regular, and the costophrenic angles are clear. The pulmonary davidson are clear. The imaged osseous structures are intact. IMPRESSION: There is no acute cardiopulmonary disease or evidence of significant change compared to the prior exam, however, since the patient's presenting symptom is hemoptysis contrast-enhanced CT examination chest is in order. <Electronically signed by Herber Hartmann > 01/28/21 [id number]
== END ==
LOC: M CLY 10:31
PROVIDERS: ATTEND Family Medicine
DX: R04.2 Hemoptysis (principal)

== ENCOUNTER → 2021-01-28 | Outpatient (REF) | payer OTHER ==
[2021-01-28 15:51] LABS: HEMATOCRIT 46.9 % (36.0-47.0); HEMOGLOBIN 15.4 g/dl (12.0-15.5); MEAN CORPUSCULAR HEMOGLOBIN 29.8 pg (27.0-33.0); MEAN CORPUSCULAR HGB CONC 32.8 g/dl (32.0-36.5); MEAN CORPUSCULAR VOLUME 90.7 fl (80.0-96.0); PLATELET COUNT, AUTOMATED 367 10^3/uL (150-450); RED BLOOD COUNT 5.17 10^6/uL (4.00-5.40); WHITE BLOOD COUNT 12.5 10^3/uL (4.0-10.0)
[2021-01-28 16:08] LABS: INR 0.99; PARTIAL THROMBOPLASTIN TIME 28.5 SECONDS (25.9-37.0); PROTHROMBIN TIME 13.5 SECONDS (12.7-14.5)
[2021-01-28 16:20] LABS: BLOOD UREA NITROGEN 7 MG/DL (7-18); CALCIUM LEVEL 9.2 MG/DL (8.5-10.1); CARBON DIOXIDE LEVEL 26 MEQ/L (21-32); CHLORIDE LEVEL 99 MEQ/L (98-107); CREATININE FOR GFR 0.83 MG/DL (0.55-1.30); GLOMERULAR FILTRATION RATE > 60.0 (>58); GLUCOSE, FASTING 314 MG/DL (70-100); POTASSIUM SERUM 4.4 MEQ/L (3.5-5.1); SODIUM LEVEL 135 MEQ/L (136-145)
== END ==
LOC: M SFHCCLAY 07:23
PROVIDERS: ATTEND Family Medicine
DX: R04.2 Hemoptysis (principal)

== ENCOUNTER → 2021-02-09 | Outpatient (CLI) | payer BC, OTHER ==
--- NOTE | 2021-02-09 08:34 | REP ---
INDICATION: KIDNEY STONES COMPARISON: None TECHNIQUE: Real time michael scale ultrasound examination using curved array transducer. FINDINGS: Right kidney is normal in contour, size, echogenicity, and reniform shape without hydronephrosis, nephrolithiasis, cystic or renal mass lesion. Right kidney measures 12.0 x 5.4 x 4.4 cm. Left kidney is normal in reniform shape measuring 11.6 x 4.6 x 5.3 cm including 1.2 cm upper pole complex cyst, 6 mm midpole calculus and 13 mm mid/lower pole calculus. Mild hydronephrosis noted. Bladder is collapsed and demonstrates bilateral ureteral jets thereby likely excluding ureteral obstruction. IMPRESSION: 1. Normal right kidney. 2. Left renal calculi and suspected small complex cyst. <Electronically signed by Alexandr Francis > 02/09/21 [id number]
== END ==
LOC: M RAD 07:07
PROVIDERS: ATTEND Family Medicine
DX: N20.2 Calculus of kidney with calculus of ureter (principal)

== ENCOUNTER → 2021-05-19 | Outpatient (CLI) | payer BC, OTHER ==
[~2021-05-19] MED LIST changes: +ISOVUE-300 61% 50ML VIAL As Ordered ONE; +LIDOCAINE 1% MDV 20ML VIAL As Ordered ONE; +TIZA10TA; -TIZA4TAB4; +methylPREDNISolone SUSP 40MG/ML 1ML VIAL (DEPO MEDROL) As Ordered ONE
== END ==
LOC: M RADPRO 14:50
PROVIDERS: ATTEND Physician Assistant
DX: M70.61 Trochanteric bursitis, right hip (principal)
CPT/HCPCS: 20610; 77002; J1030; Q9967

== ENCOUNTER → 2022-11-04 | Outpatient (REF) | payer BC, OTHER ==
[~2022-11-04] MED LIST changes: -ISOVUE-300 61% 50ML VIAL As Ordered ONE; -LIDOCAINE 1% MDV 20ML VIAL As Ordered ONE; -methylPREDNISolone SUSP 40MG/ML 1ML VIAL (DEPO MEDROL) As Ordered ONE
== END ==
LOC: M SFHCCLAY 09:18
PROVIDERS: ATTEND Family Medicine
DX: B35.1 Tinea unguium (principal)

== ENCOUNTER → 2023-02-03 | Outpatient (REF) | payer BC, OTHER ==
[2023-02-03 18:16] LABS: HEMOGLOBIN A1c 8.1 % (4.0-6.0)
[2023-02-03 18:22] LABS: BLOOD UREA NITROGEN 11 MG/DL (9-23); CALCIUM LEVEL 9.5 MG/DL (8.5-10.1); CARBON DIOXIDE LEVEL 30 MMOL/L (20-31); CHLORIDE LEVEL 100 MMOL/L (98-107); CHOLESTEROL LEVEL 293 MG/DL (<200); CHOLESTEROL RISK RATIO 6.91 (<5); CREATININE FOR GFR 0.72 MG/DL (0.55-1.30); GLOMERULAR FILTRATION RATE > 60.0 (>58); GLUCOSE, FASTING 184 MG/DL (60-100); HDL CHOLESTEROL 42.4 MG/DL (>40); LDL CHOLESTEROL 206.6 MG/DL (<100); NON-HDL-C 250.6 MG/DL; SODIUM LEVEL 137 MMOL/L (136-145); TRIGLYCERIDES LEVEL 220 MG/DL (<150)
== END ==
LOC: M SFHCCLAY 12:19
PROVIDERS: ATTEND Family Medicine
DX: E89.0 Postprocedural hypothyroidism (principal)

== ENCOUNTER → 2023-08-24 | Outpatient (CLI) | payer BC | LOC: M WHC 09:21 | PROVIDERS: ATTEND Family Medicine | DX: Z12.31 Encounter for screening mammogram for malignant neoplasm of breast (principal); Z53.9 Procedure and treatment not carried out, unspecified reason ==

== ENCOUNTER → 2023-09-22 | Outpatient (REF) | payer BC ==
[2023-09-22 11:43] LABS: ALBUMIN 3.6 G/DL (3.2-5.2); ALKALINE PHOSPHATASE 102 U/L (46-116); ALT/SGPT < 9 U/L (7.0-40); AST/SGOT < 8 U/L (<34); BILIRUBIN,TOTAL 0.3 MG/DL (0.3-1.2); BLOOD UREA NITROGEN 8 MG/DL (9-23); CALCIUM LEVEL 9.1 MG/DL (8.5-10.1); CARBON DIOXIDE LEVEL 32 MMOL/L (20-31); CHLORIDE LEVEL 102 MMOL/L (98-107); CHOLESTEROL LEVEL 136 MG/DL (<200); CHOLESTEROL RISK RATIO 4.34 (<5); CREATININE FOR GFR 0.75 MG/DL (0.55-1.30); GLOMERULAR FILTRATION RATE > 60.0 (>58); GLUCOSE, FASTING 229 MG/DL (60-100); HDL CHOLESTEROL 31.3 MG/DL (>40); LDL CHOLESTEROL 62.1 MG/DL (<100); NON-HDL-C 104.7 MG/DL; POTASSIUM SERUM 4.3 MMOL/L (3.5-5.1); SODIUM LEVEL 140 MMOL/L (136-145); TOTAL PROTEIN 6.7 G/DL (5.7-8.2); TRIGLYCERIDES LEVEL 213 MG/DL (<150)
[2023-09-22 11:51] LABS: HEMOGLOBIN A1c 9.6 % (4.0-6.0)
== END ==
LOC: M SFHCCLAY 07:28
PROVIDERS: ATTEND Family Medicine
DX: I10 Essential (primary) hypertension (principal); E11.9 Type 2 diabetes mellitus without complications

== ENCOUNTER → 2023-11-20 | Outpatient (CLI) | payer BC ==
[~2023-11-20] MED LIST changes: +PROHANCE 279.3MG/ML 15ML VIAL ONE; +PROHANCE 279.3MG/ML 5ML VIAL ONE
== END ==
LOC: M PLAIMG 07:41
PROVIDERS: ATTEND Family Medicine
DX: M54.9 Dorsalgia, unspecified (principal); Z86.018 Personal history of other benign neoplasm

== ENCOUNTER → 2024-01-05 | Outpatient (REF) | payer BC ==
[~2024-01-05] MED LIST changes: -PROHANCE 279.3MG/ML 15ML VIAL ONE; -PROHANCE 279.3MG/ML 5ML VIAL ONE
[2024-01-05 18:14] LABS: URIC ACID 4.4 MG/DL (3.1-7.8)
[2024-01-05 18:18] LABS: FREE T4 1.38 NG/DL (0.89-1.76)
[2024-01-05 18:19] LABS: THYROID STIMULATING HORMONE 21.666 uIU/ML (0.55-4.78)
[2024-01-05 18:22] LABS: ALBUMIN 3.7 G/DL (3.2-5.2); ALKALINE PHOSPHATASE 100 U/L (46-116); ALT/SGPT < 9 U/L (7.0-40); AST/SGOT 14 U/L (<34); BILIRUBIN,TOTAL < 0.2 MG/DL (0.3-1.2); BLOOD UREA NITROGEN 13 MG/DL (9-23); CALCIUM LEVEL 10.7 MG/DL (8.5-10.1); CARBON DIOXIDE LEVEL 31 MMOL/L (20-31); CHLORIDE LEVEL 101 MMOL/L (98-107); CHOLESTEROL LEVEL 161 MG/DL (<200); CHOLESTEROL RISK RATIO 5.11 (<5); CREATININE FOR GFR 0.69 MG/DL (0.55-1.30); GLOMERULAR FILTRATION RATE > 60.0 (>58); GLUCOSE, FASTING 254 MG/DL (60-100); HDL CHOLESTEROL 31.5 MG/DL (>40); LDL CHOLESTEROL 81.7 MG/DL (<100); NON-HDL-C 129.5 MG/DL; POTASSIUM SERUM 4.4 MMOL/L (3.5-5.1); SODIUM LEVEL 139 MMOL/L (136-145); TOTAL PROTEIN 7.7 G/DL (5.7-8.2); TRIGLYCERIDES LEVEL 239 MG/DL (<150)
[2024-01-05 18:46] LABS: HEMOGLOBIN A1c 9.5 % (4.0-6.0)
== END ==
LOC: M SFHCCLAY 08:40
PROVIDERS: ATTEND Family Medicine
DX: I10 Essential (primary) hypertension (principal); E11.9 Type 2 diabetes mellitus without complications; E89.0 Postprocedural hypothyroidism; N20.1 Calculus of ureter

== ENCOUNTER → 2024-04-02 | Outpatient (REF) | payer BC ==
[2024-04-02 12:21] LABS: BLOOD UREA NITROGEN 12 MG/DL (9-23); CALCIUM LEVEL 9.8 MG/DL (8.5-10.1); CARBON DIOXIDE LEVEL 30 MMOL/L (20-31); CHLORIDE LEVEL 97 MMOL/L (98-107); CREATININE FOR GFR 0.71 MG/DL (0.55-1.30); GLOMERULAR FILTRATION RATE > 60.0 (>58); GLUCOSE, FASTING 191 MG/DL (60-100); SODIUM LEVEL 136 MMOL/L (136-145)
[2024-04-02 12:23] LABS: FREE T4 1.09 NG/DL (0.89-1.76); THYROID STIMULATING HORMONE 28.876 uIU/ML (0.55-4.78)
[2024-04-02 12:26] LABS: HEMOGLOBIN A1c 7.6 % (4.0-6.0)
== END ==
LOC: M SFHCCLAY 08:58
PROVIDERS: ATTEND Physician Assistant
DX: E89.0 Postprocedural hypothyroidism (principal); I10 Essential (primary) hypertension; E11.9 Type 2 diabetes mellitus without complications; K21.9 Gastro-esophageal reflux disease without esophagitis

== ENCOUNTER → 2024-07-05 | Outpatient (CLI) | payer BC | LOC: M WHC 10:51 | PROVIDERS: ATTEND Physician Assistant | DX: Z12.31 Encounter for screening mammogram for malignant neoplasm of breast (principal); R92.8 Other abnormal and inconclusive findings on diagnostic imaging of breast; R92.323 Mammographic fibroglandular density, bilateral breasts ==

== ENCOUNTER → 2024-07-16 | Outpatient (CLI) | payer BC | LOC: M WHC 08:30 | PROVIDERS: ATTEND Physician Assistant | DX: Z12.31 Encounter for screening mammogram for malignant neoplasm of breast (principal) ==

== ENCOUNTER → 2025-01-20 | Outpatient (REF) | payer BC ==
[~2025-01-20] MED LIST changes: -PRED50TA PO; +PRED50TA57 PO
[2025-01-20 12:17] LABS: ALT/SGPT < 9 U/L (7.0-40); AST/SGOT 10 U/L (<34); CALCIUM LEVEL 9.1 MG/DL (8.5-10.1); CARBON DIOXIDE LEVEL 25 MMOL/L (20-31); CHLORIDE LEVEL 103 MMOL/L (98-107); CHOLESTEROL LEVEL 176 MG/DL (<200); CHOLESTEROL RISK RATIO 4.91 (<5); CREATININE FOR GFR 0.93 MG/DL (0.55-1.30); GLOMERULAR FILTRATION RATE 77.2 (>58); LDL CHOLESTEROL 104.6 MG/DL (<100); NON-HDL-C 140.2 MG/DL; POTASSIUM SERUM 4.6 MMOL/L (3.5-5.1); SODIUM LEVEL 139 MMOL/L (136-145); TRIGLYCERIDES LEVEL 178 MG/DL (<150)
[2025-01-20 12:18] LABS: FREE T4 1.38 NG/DL (0.89-1.76)
[2025-01-20 12:21] LABS: ESTIMATED AVERAGE GLUCOSE 192.0 MG/DL (60-110)
== END ==
LOC: M SFHCCLAY 08:39
PROVIDERS: ATTEND Physician Assistant
DX: E11.9 Type 2 diabetes mellitus without complications (principal); I10 Essential (primary) hypertension; E78.2 Mixed hyperlipidemia; E89.0 Postprocedural hypothyroidism

== ENCOUNTER → 2025-01-24 | Outpatient (CLI) | payer BC ==
[~2025-01-24] MED LIST changes: +PROHANCE 279.3MG/ML 15ML VIAL As Ordered ONE; +PROHANCE 279.3MG/ML 5ML VIAL As Ordered ONE
== END ==
LOC: M RAD 08:40
PROVIDERS: ATTEND Physician Assistant
DX: Z86.018 Personal history of other benign neoplasm (principal); R93.422 Abnormal radiologic findings on diagnostic imaging of left kidney; Z98.890 Other specified postprocedural states
CPT/HCPCS: 72157; A9576